=== PATIENT | male | born 1970 ===

== ENCOUNTER 2019-01-25 21:04 | Outpatient (CLI) | payer MEDICAID | END 2019-01-25 21:05 | disposition short-term general hospital (02) | LOC: EMS 21:04 | PROVIDERS: ATTEND Surgery | DX: S61.012A Laceration without foreign body of left thumb without damage to nail, initial encounter (principal); W29.8XXA Contact with other powered hand tools and household machinery, initial encounter; Y92.009 Unspecified place in unspecified non-institutional (private) residence as the place of occurrence of the external cause | CPT/HCPCS: A0425; A0427; A0999 ==

== ENCOUNTER 2020-03-23 16:31 | Emergency (ER) | payer MEDICAID ==
[2020-03-23] MEDS: LIDOCAINE 1% 2 ML VIAL SUBQ STA (16:53)
[2020-03-23] MEDS: TETANUS/DIPHTHERIA/PERTUSSIS 0.5 ML SYRINGE IM ONE (16:56)
[2020-03-23] MEDS ORDERED: LIDOCAINE 2% 50 ML MDV SUBQ STA (17:07)
--- NOTE | 2020-03-23 17:07 | ED Physician Documentation ---
PD HPI UPPER EXT INJURY - Stated complaint Stated Complaint: LT HAND LAC - Chief complaint Chief Complaint: Laceration - History obtained from History obtained from: Patient - History of Present Illness Location: Left, Finger (index) Type of injury: Laceration Where injury occurred: Home Timing - duration: Hours (1) Timing - details: Abrupt onset Pain level max: 4 Pain level now: 3 Improved by: Rest Worsened by: Moving, Palpating Associated symptoms: No: Weakness, Numbness, Tingling, Swelling Contributing factors: No: Anticoagulated Recently seen: Not recently seen - Additonal information Additional information: Patient states that he cut his left index finger on the fly wheel of a lawnmower today. Unknown last tetanus. He is right-handed Review of Systems Constitutional: denies: Fever, Chills GI: denies: Vomiting, Diarrhea Skin: denies: Rash Musculoskeletal: denies: Neck pain, Back pain Neurologic: denies: Headache PD PAST MEDICAL HISTORY - Past Medical History Past Medical History: Yes Cardiovascular: Hypertension Respiratory: None Neuro: None Endocrine/Autoimmune: None GI: None : None HEENT: None Psych: ADD/ADHD Musculoskeletal: None Derm: None - Past Surgical History Past Surgical History: No - Present Medications Home Medications: Ambulatory Orders Medication Instructions Recorded Confirmed Cephalexin [Keflex] 500 mg PO Q6H #28 capsule 03/23/20 - Allergies Allergies/Adverse Reactions: Allergies Allergy/AdvReac Type Severity Reaction Status Date / Time No Known Drug Allergies Allergy Verified 03/23/20 16:49 - Social History Does the pt smoke?: No Smoking Status: Never smoker Does the pt have substance abuse?: No - Immunizations Immunizations are current?: No PD ED PE NORMAL - Vitals Vital signs reviewed: Yes - General General: Alert and oriented X 3, No acute distress - HEENT HEENT: Moist mucous membranes - Derm Derm: Warm and dry - Extremities Extremities: Other (3 cm laceration to the left index finger, pad. Subcutaneous, linear. Neurovascularly intact.) - Neuro Neuro: Alert and oriented X 3 Results - Vitals Vitals: Vital Signs - 24 hr 03/23/20 03/23/20 16:37 17:49 Temperature 36.5 C 36.7 C Heart Rate 75 70 Respiratory 18 16 Rate Blood Pressure 139/88 H 134/82 H O2 Saturation 98 100 Oxygen O2 Source Room air Procedures - Laceration (location) Left index finger Length in cm: 3 Wound type: Linear, Into subcut fat, Clean Neurovascular status: Sensory intact, Motor intact, Vascular intact Tendon involvement: Tendon intact Anesthesia: Lidocaine 1% Wound Preparation: Irrigated copiously NS, Wound explored, To the base Skin layer closure: Nylon, Steri strips, Size #-0 - enter number (4) Other: Patient tolerated well, No complications, Neurovascular intact, Tetanus booster given Complexity: Simple PD MEDICAL DECISION MAKING - ED course Complexity details: considered differential, d/w patient ED course: Laceration repaired. Tolerated well. Tdap given. We will place on Keflex as this is a dirty wound. Warnings of infection and instructions on wound care given at bedside. Patient counseled regarding signs and symptoms for which I believe and urgent re-evaluation would be necessary. Patient with good understanding of and agreement to plan and is comfortable going home at this time This document was made in part using voice recognition software. While efforts are made to proofread this document, sound alike and grammatical errors may occur. Departure - Departure Disposition: 01 Home, Self Care Clinical Impression: Finger laceration Qualifiers: Encounter type: initial encounter Finger: index finger Damage to nail status: without damage Foreign body presence: without foreign body Laterality: left Qualified Code(s): S61.211A - Laceration without foreign body of left index finger without damage to nail, initial encounter Condition: Good Instructions: ED Laceration Hand Follow-Up: your,doctor in 1 week [Other] Prescriptions: Cephalexin [Keflex] 500 mg PO Q6H #28 capsule Comments: Follow-up with your doctor in about 10 days for suture removal. Return if you worsen. Keep the wound clean. Return if you notice redness, swelling or drainage from the wound. Take all antibiotics until gone Discharge Date/Time: 03/23/20 17:55
[2020-03-23] MEDS ORDERED: LIDOCAINE 1% 2 ML VIAL SUBQ STA (17:11)
[2020-03-23] MEDS: BACITRACIN ZINC OINT 1 PACKET TOP STA (17:47)
[2020-03-23 17:50] VITALS: BP 134/82
== END 2020-03-23 17:55 | disposition home or self-care (01) ==
LOC: ED 16:31
DX: S61.211A Laceration without foreign body of left index finger without damage to nail, initial encounter (principal); W45.8XXA Other foreign body or object entering through skin, initial encounter; Y93.89 Activity, other specified; Y92.009 Unspecified place in unspecified non-institutional (private) residence as the place of occurrence of the external cause; Z23 Encounter for immunization; I10 Essential (primary) hypertension
CPT/HCPCS: 12002; 90471; 99283; 99284

== ENCOUNTER 2021-09-29 18:25 | Outpatient (CLI) | payer MEDICAID ==
--- NOTE | 2021-09-30 13:34 | XRAY Report ---
PROCEDURE: Lumbar Spine with flexion-extension and oblique views. INDICATIONS: LOW BACK PAIN TECHNIQUE: 6 views of the lumbar spine acquired. COMPARISON: None. FINDINGS: Bones: 5 [id number] vertebrae are present. There is mild L3-L4 anterolisthesis. No vertebral b wendi compression fractures. No suspicious bony lesions. Moderate L4-L5 degenerative disc disease. Mi [id number] L3-L4 and L5-S1 degenerative disc disease. Mild L1-L2 and L2-L3 degenerative disc dise ase. Moderate L3-L4, L4-L5 and L5-S1 facet arthropathy. Soft tissues: Overlying bowel gas pattern is normal. No suspicious soft tissue calcifications. Flexion/extension: There is reduced range of motion, with preserved normal alignment. Oblique: No pars interarticularis defects. IMPRESSION: 1. Multilevel degenerative disc disease. 2. Multilevel facet arthropathy. 3. No fracture. No acute osseous lesion. If there is continued clinical concern for pathology, then M RI should be considered for further evaluation. 4. No abnormal vertebral body motion in either the flexed or extended positions. 5. Grade 1 L3-L4 degenerative spondylolisthesis. Reviewed by: Ilene Toussaint MD, PhD on 09/30/2021 1:33 PM PST Approved by: Ilene Toussaint MD, PhD on 09/30/2021 1:33 PM PST Station ID: [id number]
== END 2021-09-29 18:26 | disposition home or self-care (01) ==
LOC: DI.S 18:25
PROVIDERS: ATTEND Registered Nurse
DX: M47.816 Spondylosis without myelopathy or radiculopathy, lumbar region (principal); M47.817 Spondylosis without myelopathy or radiculopathy, lumbosacral region; M43.16 Spondylolisthesis, lumbar region; M51.36 Other intervertebral disc degeneration, lumbar region; M51.37 Other intervertebral disc degeneration, lumbosacral region

== ENCOUNTER 2022-11-08 16:13 | Emergency (ER) | payer OTHER, MEDICAID ==
--- NOTE | 2022-11-08 16:45 | ED Physician Documentation ---
History of Present Illness - Stated complaint Stated Complaint: CHEST PX - Additonal information Additional information: 52-year-old male who is currently incarcerated presents to the emergency department for evaluation of chest pain. He has a history of methamphetamine use as well as a diagnosis of pulmonary hypertension. He takes sildenafil and Ambrisentan For management of his pulmonary hypertension. He has been out for the last 2 days and this a.m. began having some chest pain. He reports that the medications are usually shipped to his home address and his partner delivers them to the [facility]. He is not sure where the medications are at in-transit right now. No fevers. No nausea or vomiting. No radiation of chest pain. Patient states chest pain is sharp. I have called his partner Marcela at home who reports to me that she has been in contact with the drug company and the shipments are "delayed" Review of Systems Constitutional: denies: Fever, Chills Cardiac: reports: Chest pain / pressure Respiratory: reports: Reviewed and negative GI: reports: Reviewed and negative : reports: Reviewed and negative PD PAST MEDICAL HISTORY - Past Medical History Cardiovascular: Hypertension, Other Respiratory: None Neuro: None Endocrine/Autoimmune: None GI: GERD : None HEENT: None Psych: ADD/ADHD Musculoskeletal: None Derm: None - Past Surgical History Past Surgical History: No - Present Medications Home Medications: Ambulatory Orders Medication Instructions Recorded Confirmed Ambrisentan 10 mg PO DAILY 12/29/21 11/08/22 tadalafiL [Tadalafil] 60 mg PO DAILY 12/29/21 11/08/22 - Allergies Allergies/Adverse Reactions: Allergies Allergy/AdvReac Type Severity Reaction Status Date / Time No Known Drug Allergies Allergy Verified 12/29/21 02:25 - Social History Does the pt smoke?: No Smoking Status: Never smoker Does the pt drink ETOH?: Yes Does the pt have substance abuse?: No - Immunizations Immunizations are current?: Yes - POLST Patient has POLST: No PD ED PE NORMAL - General General: Alert and oriented X 3, No acute distress - HEENT HEENT: PERRL - Neck Neck: Supple, no meningeal sign, No adenopathy - Cardiac Cardiac: RRR, No murmur - Respiratory Respiratory: No respiratory distress, Clear bilaterally - Abdomen Abdomen: Normal bowel sounds, Soft, Non tender - Derm Derm: Normal color, Warm and dry - Neuro Neuro: Alert and oriented X 3, remnant sorter 2-12 intact Eye Opening: Spontaneous Motor: Obeys Commands Verbal: Oriented GCS Score: 15 Results - Vitals Vitals: Vital Signs - 24 hr 11/08/22 16:30 Temperature 36.6 C Heart Rate 61 Respiratory 18 Rate Blood Pressure 167/114 H O2 Saturation 98 Oxygen O2 Source Room air - EKG (time done) 1622 EKG releavant findings:: EKG personally interpreted by author of this note. Relevant findings are: Rate: Rate (enter#) (56) Rhythm: NSR [place]: Other (IVCD) Intervals: Prolonged [place] QRS: Normal Ischemia: Normal ST segments Compare to prior EKG: Old EKG unavailable Computer interpretation: Agree with computer - Labs Labs: Laboratory Tests 11/08/22 11/08/22 11/08/22 16:48 16:48 16:48 WBC 4.9 RBC 4.16 L Hgb 12.3 L Hct 36.6 L MCV 88.0 MCH 29.6 MCHC 33.6 RDW 12.1 Plt Count 203 MPV 10.0 Neut # (Auto) 3.0 Lymph # (Auto) 1.1 L [place] # (Auto) 0.5 Eos # (Auto) 0.3 Baso # (Auto) 0.0 Absolute Nucleated RBC 0.00 Nucleated RBC % 0.0 Sodium 136 Potassium 3.5 Chloride 98 L Carbon Dioxide 28 Anion Gap 10.0 BUN 14 Creatinine 1.0 Estimated GFR (MDRD) 78 L Glucose 102 H Calcium 8.8 Total Bilirubin 0.8 AST 24 ALT 20 Alkaline Phosphatase 56 Troponin I High Sens 4.9 Total Protein 7.2 Albumin 4.0 Globulin 3.2 Albumin/Globulin Ratio 1.3 Lipase 77 H - Rads (name of study) cxr Relevant Findings:: Final report received (No acute cardiopulmonary process) PD Medical Decision Making - ED course Complexity details: reviewed results, considered differential, d/w patient ED course: 52-year-old male who is incarcerated presents to the emergency department for evaluation of chest pain that began this morning. Reports a history of pulmonary hypertension for which he takes sildenafil and Ambrisentan. These are medications that he has been out of now for 2 days. He denies any exertional component to the chest pain. No fevers, cough nausea or vomiting. On presentation he appears remarkably well. Cardiopulmonary auscultation was unremarkable. Chest x-ray showed no findings to suggest pneumothorax, pleural effusion cardiomegaly or pulmonary infiltrates. His EKG is interpreted by myself shows no acute ischemic findings. There was no comparison available. CBC, electrolytes high-sensitivity troponin were all essentially negative. Given the duration of his symptoms 1 troponin should be sufficient. low suspicion for acs. I would not typically expect pulmonary hypertension that is without medications for 2 days to be painful. Patient has a heart score of 2 putting him at low risk for Mace We did call his partner at home who indicates that she has been in contact with the pharmacy and the medications are simply delayed. We are unsure when they will arrive. At this time the patient is stable for return to incarceration. We discussed the usual emergent return precautions Departure - Departure Disposition: 01 Home, Self Care Clinical Impression: History of pulmonary hypertension Chest pain Qualifiers: Chest pain type: unspecified Qualified Code(s): R07.9 - Chest pain, unspecified Condition: Stable Record reviewed to determine appropriate education?: Yes Comments: Sandro today in the emergency department your chest x-ray, EKG and labs were all essentially normal. We did contact your partner and she states that the medications are simply delayed though she is working to try and acquire them for you. You are stable to return to [facility]. Return to the ER for worsening symptoms.
[2022-11-08 16:46] VITALS: BP 167/114
[2022-11-08 16:53] LABS: BASOPHILS % (AUTO) 0.4 %; EOSINOPHILS # (AUTO) 0.3 10^3/uL (0.0-0.7); EOSINOPHILS % (AUTO) 5.5 %; HCT - HEMATOCRIT 36.6 % (42.0-52.0); HGB - HEMOGLOBIN 12.3 g/dL (14.0-18.0); LYMPHOCYTES # (AUTO) 1.1 10^3/uL (1.5-3.5); MEAN CORPUSCULAR HEMOGLOBIN 29.6 pg (27.0-31.0); MEAN CORPUSCULAR HGB CONC 33.6 g/dL (32.0-36.0); MONOCYTES # (AUTO) 0.5 10^3/uL (0.0-1.0); MONOCYTES % (AUTO) 9.2 %; NEUTROPHILS % (AUTO) 61.7 %; PLT - PLATELET COUNT 203 10^3/uL (130-450); RED BLOOD COUNT 4.16 10^6/uL (4.70-6.10); RED CELL DISTRIBUTION WIDTH 12.1 % (12.0-15.0); WHITE BLOOD COUNT 4.9 x10^3/uL (4.8-10.8)
--- NOTE | 2022-11-08 17:07 | XRAY Report ---
PROCEDURE: Chest 1 View X-Ray INDICATIONS: Chest Pain TECHNIQUE: One view of the chest was acquired. COMPARISON: None. FINDINGS: Surgical changes and devices: None. Lungs and pleura: No pleural effusions or pneumothorax. Lungs are clear. Mediastinum: Mediastinal contours appear normal. Heart size is normal. Bones and chest wall: No suspicious bony lesions. Overlying soft tissues appear unremarkable. IMPRESSION: No acute cardiopulmonary process. Reviewed by: Nato Lopez MD on 11/08/2022 5:06 PM PDT Approved by: Nato Lopez MD on 11/08/2022 5:06 PM PDT Station ID: [id number]
[2022-11-08 17:12] LABS: ALBUMIN/GLOBULIN RATIO 1.3 (1.0-2.2); BILIRUBIN,TOTAL 0.8 mg/dL (0.2-1.0); CALCIUM 8.8 mg/dL (8.5-10.3); POTASSIUM 3.5 mmol/L (3.5-5.0); TOTAL PROTEIN 7.2 g/dL (6.7-8.2)
== END 2022-11-08 17:40 | disposition home or self-care (01) ==
LOC: ED 16:13
DX: R07.9 Chest pain, unspecified (principal); I27.20 Pulmonary hypertension, unspecified; T46 Poisoning by, adverse effect of and underdosing of agents primarily affecting the cardiovascular system; T46.5X6A Underdosing of other antihypertensive drugs, initial encounter; Z91.138 Patient's unintentional underdosing of medication regimen for other reason
CPT/HCPCS: 36415; 80053; 83690; 84484; 85025; 93005; 99283; 99284

== ENCOUNTER 2022-11-16 09:19 | Outpatient (CLI) | payer OTHER ==
[2022-11-16 09:38] LABS: ALBUMIN 3.9 g/dL (3.2-5.5); ALBUMIN/GLOBULIN RATIO 1.2 (1.0-2.2); BILIRUBIN,TOTAL 0.6 mg/dL (0.2-1.0); CREATININE 0.9 mg/dL (0.6-1.2); POTASSIUM 3.6 mmol/L (3.5-5.0); TOTAL PROTEIN 7.1 g/dL (6.7-8.2)
== END 2022-11-16 09:20 | disposition home or self-care (01) ==
LOC: LAB.R 09:19
PROVIDERS: ATTEND Registered Nurse
DX: Z13.228 Encounter for screening for other metabolic disorders (principal)
CPT/HCPCS: 80053

== ENCOUNTER 2022-11-26 08:00 | Outpatient (CLI) | payer OTHER ==
[2022-11-26 15:12] LABS: ALBUMIN 3.9 g/dL (3.2-5.5); ALBUMIN/GLOBULIN RATIO 1.3 (1.0-2.2); BILIRUBIN,TOTAL 0.5 mg/dL (0.2-1.0); CALCIUM 9.1 mg/dL (8.5-10.3); POTASSIUM 4.2 mmol/L (3.5-5.0); TOTAL PROTEIN 6.9 g/dL (6.7-8.2)
== END 2022-11-26 23:59 | disposition home or self-care (01) ==
LOC: LAB.R 08:00
PROVIDERS: ATTEND Registered Nurse
DX: Z13.228 Encounter for screening for other metabolic disorders (principal)
CPT/HCPCS: 80053